=== PATIENT | female | born 1995 | race Caucasian/White ===

== ENCOUNTER 2022-09-21 03:09 | Inpatient (IN) | payer SELFPAY ==
[~2022-09-21] VITALS: Ht 152.4 cm; Wt 49.4 kg
[2022-09-21] MEDS ORDERED: IV NS 0.9% 500 ML BAG IV ONE (04:00)
[2022-09-21 04:32] LABS: BASOPHILS % (AUTO) 0.3 % (0.0-2.0); EOSINOPHILS # (AUTO) 0.6 K/uL (0.0-0.7); HEMATOCRIT 33 % (33-45); HEMOGLOBIN 11.3 g/dL (11.5-14.8); LYMPHOCYTES # (AUTO) 2.2 K/uL (0.8-4.8); MEAN CORPUSCULAR HEMOGLOBIN 31 PG (26.0-33.0); MEAN CORPUSCULAR HGB CONC 34 g/dl (31.0-36.0); MEAN CORPUSCULAR VOLUME 92 fL (82-100); MONOCYTES # (AUTO) 0.9 K/uL (0.1-1.30); MONOCYTES % (AUTO) 6.2 % (2.0-12.0); NEUTROPHILS % (AUTO) 74.5 % (43.0-81.0); PLATELET COUNT (AUTO) 439 K/uL (150-450); RED BLOOD CELL COUNT(AUTO) 3.65 MIL/uL (4.0-5.2); RED CELL DISTRIBUTION WIDTH 13.8 % (11.5-15.0); WHITE BLOOD COUNT (AUTO) 14.8 K/uL (4.3-11.0)
[2022-09-21] MEDS ORDERED: CT SWABBABLE VALVE TRANS SET 1 EA INFUS.SET MC ONE (04:40)
[2022-09-21] MEDS ORDERED: IOHEXOL-300 100 ML VIAL IV ONE (04:40)
[2022-09-21] MEDS ORDERED: IV NS 0.9% 250 ML IV ONE (04:40)
[2022-09-21] MEDS ORDERED: MORPHINE SULFATE INJ 4 MG/ML DISP.SYRIN ONE (04:49)
[2022-09-21 04:50] LABS: PREGNANCY TEST URINE QUAL NEGATIVE (NEGATIVE)
[2022-09-21 04:56] LABS: ALBUMIN 3.5 g/dL (3.4-5.0); BILIRUBIN,DIRECT 0.2 mg/dL (0.0-0.2); BILIRUBIN,TOTAL 0.6 mg/dL (0.2-1.0); CALCIUM, SERUM 9.4 mg/dL (8.5-10.1); CREATININE 0.7 mg/dL (0.6-1.3); TOTAL PROTEIN, SERUM 8.2 g/dL (6.4-8.2)
[2022-09-21 04:58] LABS: INR 1.08 (0.91-1.10); LACTIC ACID 0.7 mmol/L (0.4-2.0); PARTIAL THROMBOPLASTIN TIME 30.6 SEC (24.3-34.3); PROTHROMBIN TIME 11.3 SECS (9.2-11.1)
[2022-09-21] MEDS ORDERED: MORPHINE SULFATE INJ 2 MG/ML DISP.SYRIN IV ONE (05:00)
[2022-09-21] MEDS ORDERED: ONDANSETRON HCL/PF 4 MG/2 ML VIAL IV ONE (05:00)
[2022-09-21] MEDS ORDERED: ONDANSETRON HCL/PF 4 MG/2 ML VIAL ONE (05:00)
[2022-09-21 05:03] LABS: POTASSIUM 2.5 mmol/L (3.5-5.1)
[2022-09-21] MEDS ORDERED: POTASSIUM CL. PREMIX PERIPHER. 50 ML ONE ×2 (05:09→06:08)
[2022-09-21] MEDS ORDERED: POTASSIUM CHLORIDE 20 MEQ TAB.PRT.SR PO ONE ×2 (05:10→05:30)
[2022-09-21] MEDS ORDERED: POTASSIUM CHLORIDE 10 MEQ/50 ML PREMIXED IVPB FOR PERIPHERAL LINE IV ONE (05:30)
[2022-09-21 06:41] VITALS: O2SAT 98
[2022-09-21] MEDS ORDERED: POTASSIUM CL. PREMIX PERIPHER. 100 ML ONE (07:11)
[2022-09-21 08:00] VITALS: BP 111/60; TEMP 99.4; O2SAT 98
[2022-09-21] MEDS ORDERED: VANCOMYCIN 1 GM in IV D5W 250 ML IV ONE (08:00)
[2022-09-21] MEDS ORDERED: KETOROLAC TROMETHAMINE INJ 30 MG/ML VIAL IV ONE (08:00)
[2022-09-21] MEDS ORDERED: PIPERACILLIN /TAZOBACTAM 3.375 G in IV D5W 50 ML IV ONE (08:00)
[2022-09-21] MEDS ORDERED: KETOROLAC TROMETHAMINE 15 MG/ML VIAL ONE (08:31)
[2022-09-21] MEDS ORDERED: CLON1TAB12 PO (08:59)
[2022-09-21] MEDS ORDERED: SERT100T PO (08:59)
[2022-09-21] MEDS ORDERED: ALBU18HF2 IH (08:59)
[2022-09-21] MEDS ORDERED: ACETAMINOPHEN 325 MG TABLET PO PRN (09:00)
[2022-09-21] MEDS ORDERED: ONDANSETRON HCL/PF 4 MG/2 ML VIAL IVP PRN (09:00)
[2022-09-21] MEDS ORDERED: IV NS 0.9% 1,000 ML IV PRN (09:00)
[2022-09-21] MEDS ORDERED: LORAZEPAM 1 MG TABLET PO PRN (09:00)
[2022-09-21] MEDS ORDERED: ACETAMINOPHEN 650 MG/SUPP.RECT RC PRN (09:00)
[2022-09-21 10:00] VITALS: BP 130/83; TEMP 97.4; O2SAT 100
[2022-09-21] MEDS ORDERED: PIPERACILLIN /TAZOBACTAM 3.375 G in IV D5W 100 ML IV SCH (13:00)
== END 2022-09-21 11:20 | disposition left against medical advice (07) | DRG 156 ==
LOC: ER 03:09 → MED 08:15
PROVIDERS: ADMIT Internal Medicine; ATTEND Internal Medicine
DX: J34.89 Other specified disorders of nose and nasal sinuses (principal); E87.6 Hypokalemia; J45.909 Unspecified asthma, uncomplicated; R60.9 Edema, unspecified; F14.188 Cocaine abuse with other cocaine-induced disorder; J32.9 Chronic sinusitis, unspecified
CPT/HCPCS: 36415; 70487-TC; 71045-TC; 80048-TC; 80076-TC; 83605-TC; 84703-TC; 85025-TC; 85730-TC; 87040-TC; A4223; G0378; J1885; J2270; J2405; J2543; J3370; J3480; J7030; J7040; J7050; J7060; Q9967